=== PATIENT | female | born 2000 | race Caucasian/White ===

== ENCOUNTER 2018-11-13 04:18 | Emergency (ER) | payer BC ==
[2018-11-13] MEDS ORDERED: KETOROLAC 30 MG/ML VIAL IVP ONE (04:37)
--- NOTE | 2018-11-13 04:41 | Emergency Department Record ---
History of Present Illness - General Chief Complaint: Abdominal Pain Stated Complaint: ABDOMINAL PAIN Time Seen by Provider: 11/13/18 04:36 Source: Patient Mode of Arrival: Ambulatory Limitations: No limitations - History of Present Illness Initial Comments: 18 yo female presents to ED for evaluation of abdominal pain symptoms that began approximately 3 hours ago, woke her up from sleep this morning. Patient reports a history of ovarian cysts, denies similar symptoms previously however. Patient denies nausea/vomiting, denies fevers, chills, or dysuria symptoms. Patient denies previous abdominal surgery as well, and denies health problems at her baseline. MD Complaint: Abdominal pain Onset/Timin -: Hour(s) Location: Diffuse, LLQ Severity: Severe Severity scale (1-10): 10 Quality: Sharp, Stabbing Consistency: Constant Improves With: Nothing Worsens With: Nothing Associated Symptoms: Denies other symptoms - Related Data LMP (females 10-50): Current Patient : No Home Medications Medication Instructions Recorded Confirmed Last Taken Venlafaxine HCl [Effexor Xr] 37.5 mg PO DAILY 11/13/18 11/13/18 11/12/18 Allergies Allergy/AdvReac Type Severity Reaction Status Date / Time sulfamethoxazole Allergy RASH Verified 10/20/15 22:10 [From Bactrim] trimethoprim [From Bactrim] Allergy RASH Verified 10/20/15 22:10 Travel Screening - Travel/Exposure Within Last 30 Days Have you traveled within the last 30 days?: No - Travel/Exposure Within Last Year Have you traveled outside the [place] in the last year?: No - Additonal Travel Details Have you been exposed to anyone with a communicable illness?: No - Travel Symptoms Symptom Screening: None Review of Systems Constitutional: Denies: Chills, Fever, Malaise, Night sweats Eyes: Denies: Eye discharge, Eye pain ENT: Denies: Congestion, Ear pain, Epistaxis Respiratory: Denies: Cough, Dyspnea Cardiovascular: Denies: Chest pain, Dyspnea on exertion Endocrine: Denies: Fatigue, Heat or cold intolerance Gastrointestinal: Reports: Abdominal pain. Denies: Nausea, Vomiting Genitourinary: Denies: Incontinence, Retention Musculoskeletal: Reports: Back pain. 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 - RESPIRATORY Hx Respiratory Disorders: Yes Hx Asthma: Yes - CARDIOVASCULAR Hx Cardio Disorders: No - NEURO Hx Neuro Disorders: No Hx Headaches: Yes - GI Hx GI Disorders: No - Hx Genitourinary Disorders: No Hx UTI: Yes - ENDOCRINE Hx Endocrine Disorders: No - MUSCULOSKELETAL Hx Musculoskeletal Disorders: Yes - PSYCH Hx Psych Problems: Yes Hx Anxiety: Yes Hx Depression: Yes - HEMATOLOGY/ONCOLOGY Hx Hematology/Oncology Disorders: No Family Medical History Any Significant Family History?: Yes Hx Diabetes: Grandparents Hx Heart Disease: Grandparents Hx HTN: Grandparents Physical Exam - General General Appearance: Alert, Oriented x3, Cooperative, Mild distress Limitations: No limitations - Head Head exam: Atraumatic, Normocephalic, Normal inspection Head exam detail: negative: Abrasion, Contusion, Randolph's sign, General tenderness, Hematoma, Laceration - Eye Eye exam: Normal appearance. negative: Conjunctival injection, Periorbital swelling, Periorbital tenderness, Scleral icterus - ENT Ear exam: negative: Auricular hematoma, Auricular trauma Nasal Exam: negative: Active bleeding, Discharge, Dried blood, Foreign body Mouth exam: negative: Drooling, Laceration, Muffled voice, Tongue elevation - Neck Neck exam: Normal inspection. negative: Meningismus, Tenderness - Respiratory Respiratory exam: Normal lung sounds bilaterally. negative: Rales, Respiratory distress, Rhonchi, Stridor - Cardiovascular Cardiovascular Exam: Regular rate, Normal rhythm, Normal heart sounds - GI/Abdominal GI/Abdominal exam: Soft, Tenderness (TTP LLQ, no rebound, guarding, or peritoneal signs on examination.). negative: Rebound, Rigid - Rectal Rectal exam: Deferred - exam: Deferred - Extremities Extremities exam: Normal inspection. negative: Pedal edema, Tenderness - Back Back exam: Denies: CVA tenderness (R), CVA tenderness (L) - Neurological Neurological exam: Alert, Normal gait, Oriented X3 - Psychiatric Psychiatric exam: Normal affect, Normal mood - Skin Skin exam: Normal color. negative: Abrasion Type of lesion: negative: abrasion Course Vital Signs 11/13/18 11/13/18 04:22 04:24 Temperature 98.1 F 98.1 F Pulse Rate 88 Pulse Rate [ 88 Pulse Ox Probe] Respiratory 20 20 Rate Blood Pressure 133/82 Blood Pressure 133/82 [Left Arm] Pulse Ox 100 100 - Reevaluation(s) Reevaluation #1: 11/13/18 05:17 Laboratory studies reviewed are grossly unremarkable for an acute process except for: WBC 20.7. UA 2+ Calcium oxylate crystals RBCs: 16-25 Patient reports improvement in her pain symptoms, going to CT at this time. Reevaluation #2: 11/13/18 06:27 CT Abdomen and Pelvis: Positive for Appendicitis Case was discussed with Dr. Zacarias, will accept patient for transfer for appendectomy later this afternoon. Invanz ordered to infuse prior to transfer. Patient and her mother were updated on the plan of care including transfer for appendectomy. Medical Decision Making - Lab Data Result diagrams: 11/13/18 04:54 11/13/18 04:54 Disposition Disposition: Transfer Clinical Impression: Acute appendicitis Qualifiers: Acute appendicitis type: unspecified acute appendicitis type Qualified Code(s) : K35.80 - Unspecified acute appendicitis Disposition: Acute Care Hospital Transfer Transfer To: [facility] Reason For Transfer: Surgical evaluation Accepting Physician: Deann Time Discussed w/Accepting Physician: 06:29 Condition: (2) Stable Instructions: Abdominal Pain (ED) Additional Instructions: Return to ED if your symptoms worsen or if you have any concerns. (medication) as directed. Follow-up with your family doctor in 3-5 days as directed. Forms: Patient Portal Access Time of Disposition: 06:29 Quality - Quality Measures Quality Measures: N/A - Blood Pressure Screening Does Patient Have Any of the Following: No Blood Pressure Classification: Pre-Hypertensive BP Reading Systolic Measurement: 133 Diastolic Measurement: 82 Screening for High Blood Pressure: < Pre-Hypertensive BP, F/U Documented > [ G8950] Pre-Hypertensive Follow-up Interventions: Referral to alternative/primary care provider.
[2018-11-13] MEDS ORDERED: 0.9 % SODIUM CHLORIDE 1000ML 1,000 ML IV SCH (04:45)
[2018-11-13 04:55] LABS: HEMOGLOBIN 12.9 gm/dl (11.6-16.0); MEAN CORPUSCULAR HEMOGLOBIN 28.1 pg (27-33); MEAN CORPUSCULAR HGB CONC 33.1 g/dl (32-36); MEAN PLATELET VOLUME 9.5 fl (7.4-10.4); PLATELET COUNT 371 K/uL (130-400); RED BLOOD COUNT 4.59 M/uL (3.80-5.40); RED CELL DISTRIBUTION WIDTH 13.6 % (11.5-14.5)
[2018-11-13 04:56] LABS: URINE APPEARANCE CLOUDY; URINE BILIRUBIN NEGATIVE (NEGATIVE); URINE BLOOD LARGE (NEGATIVE); URINE COLOR YELLOW; URINE GLUCOSE (UA) NEGATIVE (NEGATIVE); URINE KETONE TRACE (NEGATIVE); URINE LEUKOCYTE ESTERASE NEGATIVE (NEGATIVE); URINE NITRITE NEGATIVE (NEGATIVE); URINE PROTEIN TRACE (NEGATIVE)
[2018-11-13 04:59] LABS: WHITE BLOOD COUNT W/O DIFF 20.7 K/uL (4.2-12.2)
[2018-11-13 05:05] LABS: HCG,QUALITATIVE URINE NEGATIVE (NEGATIVE); URINE BACTERIA NONE SEEN; URINE CALCIUM OXALATE CRYSTALS 2+ /hpf; URINE RBC 16 - 25 (NONE SEEN); URINE WBC NONE SEEN (0-2/hpf)
[2018-11-13 05:06] LABS: BLOOD UREA NITROGEN 8 mg/dL (6-20); CREATININE 0.7 mg/dL (0.5-0.9); EST GLOMERULAR FILTRATION RATE > 60 mL/min; TOTAL PROTEIN 6.9 g/dL (6.6-8.7)
[2018-11-13 05:07] LABS: LIPASE 23 U/L (13-60)
[2018-11-13 05:08] LABS: GLUCOSE,RANDOM 130 mg/dL (74-109)
[2018-11-13 05:11] LABS: ALB/GLOB RATIO 1.7 (1.1-1.8); ALBUMIN 4.3 g/dL (4.0-5.0); ALKALINE PHOSPHATASE 88 U/L (35-104); ALT/SGPT 16 U/L (<33); AST/SGOT 15 U/L (10.0-35.0)
[2018-11-13] MEDS ORDERED: ERTAPENEM SODIUM 1 G in 0.9 % SODIUM CHLORIDE 100ML 100 ML IVPB ONE (06:30)
[2018-11-13] MEDS ORDERED: ONDANSETRON HCL IV 4 MG/2 ML VIAL IVP ONE (07:05)
--- NOTE | 2018-11-14 19:37 | CT SCAN REPORT ---
EXAM: CT SCAN ABDOMEN/PELVIS W CONTRAST HISTORY: PERIUMBILICAL PAIN FOR THREE HOURS. TECHNIQUE: CT abdomen and pelvis performed with 100 mL Omnipaque-300 intravenous contrast. COMPARISON: None. FINDINGS: Lung bases clear. Unremarkable appearance of the liver, gallbladder, adrenal glands, pancreas, and spleen. Symmetric renal perfusion. No hydronephrosis. Mildly thickened appearance of the appendix with periappendiceal fat stranding; appendix measures up to 9 mm in diameter consistent with acute appendicitis. Trace fluid in the pelvis. No focal colonic thickening or inflammatory changes. Small bowel is nondilated. No free air. Mildly prominent mesenteric lymph nodes, greatest in the right lower quadrant, likely reactive. No adnexal mass is seen. Unremarkable appearance of the urinary bladder. Abdominal aorta is nondilated. No acute osseous findings. IMPRESSION: 1. FINDINGS CONSISTENT WITH ACUTE APPENDICITIS. 2. TRACE FREE FLUID IN THE PELVIS. JOB NUMBER: [id number] MTDD
== END 2018-11-13 07:37 | disposition short-term general hospital (02) ==
LOC: ER 04:18
DX: K35.80 Unspecified acute appendicitis (principal); F17.210 Nicotine dependence, cigarettes, uncomplicated
CPT/HCPCS: 99285 ×2; 96365; 96375; 83690; 80053; 81001; 81025; 85027; 74177; Q9967; J1335; J1885; J2405

== ENCOUNTER 2019-07-04 14:51 | Emergency (ER) | payer BC ==
[2019-07-04 15:32] LABS: URINE APPEARANCE CLEAR; URINE BILIRUBIN NEGATIVE (NEGATIVE); URINE BLOOD TRACE-I (NEGATIVE); URINE COLOR YELLOW; URINE GLUCOSE (UA) NEGATIVE (NEGATIVE); URINE KETONE NEGATIVE (NEGATIVE); URINE LEUKOCYTE ESTERASE NEGATIVE (NEGATIVE); URINE NITRITE NEGATIVE (NEGATIVE); URINE PROTEIN NEGATIVE (NEGATIVE); URINE UROBILINOGEN 0.2 E.U./dL (0.20 - 1.00)
[2019-07-04 15:40] LABS: HCG,QUALITATIVE URINE POSITIVE (NEGATIVE); URINE AMORPHOUS SEDIMENT 1+; URINE MUCUS MODERATE; URINE WBC NONE SEEN (0-2/hpf)
--- NOTE | 2019-07-04 15:44 | Emergency Department Record ---
History of Present Illness - General Chief complaint: complication Stated complaint: PREG AND CRAMPING Time Seen by Provider: 07/04/19 15:20 Source: Patient Mode of Arrival: Ambulatory Limitations: No limitations Travel/Exposure to [facility] [place] Within 21 Days of Symptoms: No - History of Present Illness MD Complaint: Abdominal pain Onset/Timin -: Days(s) Severity: Moderate Severity scale (1-10): 4 Quality: Cramping Consistency: Intermittent Improves with: None Worsens with: None Associated symptoms: Denies other symptoms Vaginal bleeding: None Pre-jeff care: Followed by OB - Related Data Home Medications Medication Instructions Recorded Confirmed Last Taken Escitalopram Oxalate [Lexapro] 5 mg PO DAILY 07/04/19 07/04/19 07/04/19 Pnv No.95/Ferrous Fum/Folic AC 1 each PO DAILY 07/04/19 07/04/19 07/04/19 [ Multivitamin Tablet] Allergies Allergy/AdvReac Type Severity Reaction Status Date / Time sulfamethoxazole Allergy RASH Verified 07/04/19 15:07 [From Bactrim] trimethoprim [From Bactrim] Allergy RASH Verified 07/04/19 15:07 Past Medical History - SOCIAL HISTORY Smoking Status: Current every day smoker Alcohol Use: None Drug Use: None - 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 - RESPIRATORY Hx Respiratory Disorders: Yes Hx Asthma: Yes - CARDIOVASCULAR Hx Cardio Disorders: No - NEURO Hx Neuro Disorders: Yes Hx Headaches: Yes - GI Hx GI Disorders: No - Hx Genitourinary Disorders: Yes Hx UTI: Yes - ENDOCRINE Hx Endocrine Disorders: No - MUSCULOSKELETAL Hx Musculoskeletal Disorders: Yes - PSYCH Hx Psych Problems: Yes Hx Anxiety: Yes Hx Depression: Yes - HEMATOLOGY/ONCOLOGY Hx Hematology/Oncology Disorders: No Family Medical History Any Significant Family History?: Yes Hx Diabetes: Grandparents Hx Heart Disease: Grandparents Hx HTN: Grandparents Course Vital Signs 07/04/19 15:09 Temperature 98.7 F Pulse Rate 97 H Respiratory 20 Rate Blood Pressure 134/74 Pulse Ox 98 - Reevaluation(s) Reevaluation #1: 07/04/19 17:40 us shows demise Medical Decision Making - Lab Data Lab Results 07/04/19 Range/Units 15:20 Urine Color Yellow Urine Appearance Clear Urine pH 6.5 (5.0-8.0) Ur Specific [place] 1.025 (1.002-1.030) Urine Protein Negative (NEGATIVE) Urine Glucose (UA) Negative (NEGATIVE) Urine Ketones Negative (NEGATIVE) Urine Blood Trace-i (NEGATIVE) Urine Nitrite Negative (NEGATIVE) Urine Bilirubin Negative (NEGATIVE) Urine Urobilinogen 0.2 (0.20 - 1.00) E.U./dL Ur Leukocyte Esterase Negative (NEGATIVE) Urine RBC 3 - 6 (NONE SEEN) Urine WBC None seen (0-2/hpf) Ur Epithelial Cells 7 - 10 (FEW) Amorphous Sediment 1+ Urine Mucus Moderate Urine HCG, Qual Positive H (NEGATIVE) Disposition Disposition: Discharge Clinical Impression: Inevitable Disposition: Home, Self-Care Condition: (1) Good Instructions: Threatened Miscarriage (ED) Additional Instructions: follow up with parachute harness rigger alcira. return sooner if worse. no intercourse for 2 wks Forms: Patient Portal Access Quality - Quality Measures Quality Measures: N/A - Blood Pressure Screening Does Patient Have Any of the Following: No Blood Pressure Classification: Pre-Hypertensive BP Reading Systolic Measurement: 134 Diastolic Measurement: 74 Screening for High Blood Pressure: < Pre-Hypertensive BP, F/U Documented > [G8950] Pre-Hypertensive Follow-up Interventions: Follow-up with rescreen every year.
--- NOTE | 2019-07-04 17:19 | ULTRASOUND REPORT ---
EXAMINATION: Ultrasound Uterus Less Than 14 Weeks EXAM DATE: 07/04/2019 4:45 PM TECHNIQUE: Transabdominal and transvaginal ultrasound imaging of the pelvis was performed. Images we re recorded and stored on PACS. INDICATION: threatened ab COMPARISON: None. FINDINGS: Location: Intrauterine. Gestational sac: Normal. Yolk sac: Not seen pole: Present Embryo heart rate: No heart rate BPM. Normal. Placenta: Too early to evaluate.. position: Early gestation, not applicable. Gestation: [place] . Amniotic fluid: Normal volume. Additional findings: None. Biometry: Salyer-rump length: 2.4 cm. 8 weeks 4 days. JITENDRA 02/09/2020 Mean gestational sac size: Not applicable Clinical gestational age from LMP: 10 weeks, 2 days. JITENDRA: 01/28/2020 Best gestational age determined by crown-rump length Maternal Pelvis: Uterus: No abnormality in the visualized uterus. Cervix: Unremarkable cervical, transabdominal technique. Right ovary: Unremarkable. 3.3 x 2.2 x 3.4 cm. Left ovary: Unremarkable. 2.4 x 1.2 x 1.6 cm Cul-de-sac: Unremarkable. IMPRESSION: 1. Intrauterine gestational sac with pole measuring 2.4 cm demonstrating no movement or h eart activity. Findings are consistent with demise. Dictated by: Gurwinder Julian MD on 07/04/2019 5:11 PM. .
== END 2019-07-04 17:59 | disposition home or self-care (01) ==
LOC: ER 14:51
DX: O02.1 Missed abortion (principal); R10.9 Unspecified abdominal pain; Z3A.08 8 weeks gestation of pregnancy
CPT/HCPCS: 76801; 76817; 81001; 81025; 84702; 99284